=== PATIENT | female | born 1950 | race Caucasian/White ===

== ENCOUNTER → 2016-12-19 | Outpatient (CLI) | payer OTHER | LOC: BMCIMAGING 12:29 | PROVIDERS: ATTEND Nurse Practitioner Family | DX: J40 Bronchitis, not specified as acute or chronic (principal) ==

== ENCOUNTER → 2017-02-28 | Outpatient (CLI) | payer OTHER ==
[~2017-02-28] MED LIST: GADOBUTROL 10 ML VIAL IVP ONE
== END ==
LOC: FIMAGING 13:23
PROVIDERS: ATTEND Internal Medicine
DX: R10.9 Unspecified abdominal pain (principal); R50.9 Fever, unspecified
CPT/HCPCS: A9585

== ENCOUNTER → 2017-02-28 | Outpatient (CLI) | payer OTHER | LOC: BMCIMAGING 07:49 | PROVIDERS: ATTEND Internal Medicine | DX: J40 Bronchitis, not specified as acute or chronic (principal) ==

== ENCOUNTER 2017-03-01 10:15 | Day surgery (SDC) | payer OTHER ==
[2017-03-01 11:26] LABS: HEMATOCRIT 31.7 % (38.0-47.0)
[2017-03-01 11:37] LABS: INR 1.17 (0.83-1.16); PROTIME(PATIENT) 14.9 SEC (12.0-15.0)
[2017-03-01 11:38] LABS: APTT 31.2 SEC (23.0-38.0)
[2017-03-01] MEDS ORDERED: MIDAZOLAM 2 MG/2 ML VIAL ONE (11:48)
[2017-03-01] MEDS ORDERED: fentaNYL 100 MCG/2 ML INJ ONE (11:49)
[2017-03-01 13:40] VITALS: TEMP 98.1
[2017-03-01 14:45] VITALS: O2SAT 93
[2017-03-01 14:46] VITALS: BP 109/69; PULSE 81; RESP 16
== END 2017-03-01 14:46 | disposition home or self-care (01) ==
LOC: FIMAGING 10:15
PROVIDERS: ATTEND Internal Medicine
PROC: 0W9J3ZX Drainage of Pelvic Cavity, Percutaneous Approach, Diagnostic (ICD-10-PCS; principal; 2017-03-01 13:20)
DX: R19.09 Other intra-abdominal and pelvic swelling, mass and lump (principal); R10.2 Pelvic and perineal pain; D72.829 Elevated white blood cell count, unspecified
CPT/HCPCS: J2250; J3010

== ENCOUNTER 2017-03-07 17:11 | Emergency (ER) | payer OTHER ==
--- NOTE | 2017-03-07 17:50 | EDPHY ---
H & P Smoking Status: Never smoked <Bhargav Birch S - Last Filed: 03/07/17 21:13> Smoking Status: Never smoked <Charlie Massey - Last Filed: 03/08/17 16:50> Time Seen by Provider: 03/07/17 17:48 HPI/ROS: Chief complaint. Left calf pain and swelling HPI. This patient was seen by Dr. Massey and not by me. ROS Constitutional. [no fever/chills, no weakness] Eyes. [no problems with vision] ENT. [no sore throat, no nasal drainage] Cardiovascular. [no chest pain] Respiratory. [no shortness of breath, no cough] Abdominal. [no abdominal pain, no nausea/vomiting, no diarrhea] . [no problems urinating] MS. [no calf pain/swelling, no neck/back pain, no joint pain] Skin. [no rash] Lymph. [no swollen glands] Neuro. [no headache, no dizziness, no difficulty walking or with speech] ( Bhargav Birch Jacquie) CHIEF COMPLAINT: Left leg swelling HISTORY OF PRESENT ILLNESS: The patient is a 66-year-old lady with a history of endometrial cancer stage II resected 1 year ago and finished radiation therapy in October of this year followed by Dr. Saldivar as well as Laly Au and surgeon Dr. Dickerson. Patient also was found to have a lymphocele in her left pelvis 1 month ago and had it drained with IR last month. He was shown to have staph infection and she started moxifloxacin today. She noticed over last 2 days increased swelling of her left leg. No significant pain. No erythema. No fever. She is concerned about a DVT. No chest pain, no shortness of breath. REVIEW OF SYSTEMS: Constitutional: denies: chills, fever, recent illness, recent injury EENTM: denies: blurred vision, double vision, nose congestion Respiratory: denies: cough, shortness of breath Cardiac: denies: chest pain, irregular heart rate, lightheadedness, palpitations Gastrointestinal/Abdominal: denies: abdominal pain, diarrhea, nausea, vomiting, blood streaked stools Genitourinary: denies: dysuria, frequency, hematuria, pain Musculoskeletal: See HPI Skin: denies: lesions, rash, jaundice, bruising Neurological: denies: headache, numbness, paresthesia, tingling, dizziness, weakness Hematologic/Lymphatic: denies: blood clots, easy bleeding, easy bruising Immunologic/allergic: denies: HIV/AIDS, transplant EXAM: GENERAL: Well-appearing, well-nourished and in no acute distress. HEAD: Atraumatic, normocephalic. EYES: Pupils equal round and reactive to light, extraocular movements intact, sclera anicteric, conjunctiva are normal. ENT: TMs normal, nares patent, oropharynx clear without exudates. Moist mucous membranes. NECK: Normal range of motion, supple without lymphadenopathy or JVD. LUNGS: Breath sounds clear to auscultation bilaterally and equal. No wheezes rales or rhonchi. HEART: Regular rate and rhythm without murmurs, rubs or gallops. ABDOMEN: Soft, nontender, normoactive bowel sounds. No guarding, no rebound. No masses appreciated. BACK: No CVA tenderness, no spinal tenderness, step-offs or deformities EXTREMITIES: Left lower extremity 1+ edema, no erythema, no tenderness NEUROLOGICAL: Cranial nerves II through XII grossly intact. Normal speech, normal gait. 5/5 strength, normal movement in all extremities, normal sensation PSYCH: Normal mood, normal affect. SKIN: Warm, dry, normal turgor, no visible rashes or lesions. (Charlie Massey) Constitutional: Initial Vital Signs Temperature (C) 37.4 C 03/07/17 17:13 Heart Rate 115 H 03/07/17 17:13 Respiratory Rate 16 03/07/17 17:13 Blood Pressure 125/94 H 03/07/17 17:13 O2 Sat (%) 92 03/07/17 17:13 O2 Delivery Mode Room Air Allergies/Adverse Reactions: iodine [Iodine] Allergy (Intermediate, Verified 08/18/09 06:23) Penicillins Allergy (Verified 08/18/09 03:02) Sulfa (Sulfonamide Antibiotics) Allergy (Verified 08/18/09 03:02) Home Medications: Medication Instructions Recorded Aspirin [Aspirin 81mg (*)] 81 mg PO DAILY 05/14/16 Herbals/Supplements -Info Only 1 ea PO DAILY 05/14/16 Levothyroxine [Synthroid 137 mcg 137 mcg PO DAILY06 05/14/16 (*)] Losartan Potassium [Cozaar] 100 mg PO DAILY 05/14/16 Omeprazole [Prilosec 20 mg] 20 mg PO DAILY PRN 05/14/16 Timolol 0.5% Gel [Timoptic-Xe Gel 1 drops EACHEYE HS 05/14/16 0.5% (*)] Medical Decision Making <Bhargav Birch S - Last Filed: 03/07/17 21:13> - Diagnostics Imaging: Discussed imaging studies w/ call center coordinator Radiologist <Charlie Massey - Last Filed: 03/08/17 16:50> ED Course/Re-evaluation: She does have a small DVT on ultrasound but concerning for slow venous flow. I will image her abdomen to evaluate for potential venous obstruction considering her cyst drainage 1 month ago by IR. There was found to have Staph lugdunesis and she is currently on moxifloxacin for this. The patient states that she is allergic to IV contrast, that it causes hives . She has done well in the past when premedicated. 9:30 p.m. I discussed the CT results with the patient.. Dr. Campbell does not feel that there is a DVT is on CT scan our reviewing ultrasound simply very slow flow. I spoke with Dr. Horner who is covering for Dr. Saldivar. We discussed possibly starting her on a low dose of Xarelto because of her low flow state. Eventually we decided not to because she will hopefully have an interventional procedure soon to dress the lymphocele. I will refer her back to her GERIATRIC CASE MANAGER/ONC surgeon Dr. Dickerson who she saw today. 9:50 p.m. I discussed the case with Dr. Dickerson who said he will follow up with the patient tomorrow and schedule the intervention. (Charlie Massey) Differential Diagnosis: Partial list of the Differential diagnosis considered include but were not limited to; DVT, venous congestion, cyst and although unlikely based on the history and physical exam, I also considered abscess, cellulitis, fasciitis. I discussed these differential diagnoses and the plan with the patient as well as the usual and expected course. The patient understands that the diagnosis is provisional and that in medicine we are not always correct and that further workup is often warranted. Usual and customary warnings were given. All of the patient's questions were answered. The patient was instructed to return to the emergency department should the symptoms at all worsen or return, otherwise to followup with the physician as we discussed. (Charlie Massey) - Data Points Laboratory Results: Laboratory Results 03/07/17 19:15 03/07/17 19:15 Medications Given: Discontinued Medications Diphenhydramine HCl (Benadryl Injection) 50 mg IVP EDNOW ONE Stop: 03/07/17 19:06 Last Admin: 03/07/17 19:33 Dose: 50 mg Methylprednisolone Sodium Succinate (Solu-Medrol) 125 mg IVP EDNOW ONE Stop: 03/07/17 19:06 Last Admin: 03/07/17 19:33 Dose: 125 mg Ranitidine HCl (Zantac) 50 mg IVP EDNOW ONE Stop: 03/07/17 19:06 Last Admin: 03/07/17 19:34 Dose: 50 mg Departure <Bhargav Birch - Last Filed: 03/07/17 21:13> <Charlie Massey - Last Filed: 03/08/17 16:50> - Departure Disposition: Home, Routine, Self-Care Clinical Impression: Lymphocele Edema Qualifiers: Edema type: unspecified Qualified Code(s): R60.9 - Edema, unspecified Condition: Fair Instructions: Edema (ED) Additional Instructions: Dr. Horner and Dr. Campbell do not recommend blood thinners at this time but that you follow up with Dr. Dickerson to schedule injection of your lymphocele with a sclerosing agent to try and reduce compression of your external iliac vein. Referrals: Laly Au MD [Primary Care Provider] - As per Instructions Nasim Dickerson MD [Medical Doctor] - 1-2 days without fail
[2017-03-07] MEDS ORDERED: RANITIDINE 50 MG/2 ML VIAL IVP ONE (19:05)
[2017-03-07] MEDS ORDERED: methylPREDNISolone SOD SUCC 125 MG/2 ML VIAL IVP ONE (19:05)
[2017-03-07 19:21] LABS: % IMMATURE GRANULYOCYTES 0.6 % (0.0-1.1); ABSOLUTE IMMATURE GRANULOCYTES 0.04 10^3/uL (0.00-0.10); ADD DIFF? NO; ADD MORPH? NO; ADD SCAN? NO; ATYPICAL LYMPHOCYTE FLAG 10 (0-99); FRAGMENT RBC FLAG 0 (0-99); HEMATOCRIT 33.4 % (38.0-47.0); HEMOGLOBIN 11.1 g/dL (12.6-16.3); LEFT SHIFT FLG 0 (0-99); LIPEMIA HEMOLYSIS FLAG 80 (0-99); MEAN CELL HEMOGLOBIN 30.6 pg (27.9-34.1); MEAN CELL HEMOGLOBIN CONCENTR. 33.2 g/dL (32.4-36.7); MEAN PLATELET VOLUME 8.4 fL (8.7-11.7); PLATELET CLUMPS FLAG 0 (0-99); PLATELET COUNT 495 10^3/uL (150-400); RED BLOOD CELL COUNT 3.63 10^6/uL (4.18-5.33); RED CELL DISTRIBUTION WIDTH 11.7 % (11.5-15.2)
[2017-03-07 19:29] LABS: APTT 34.9 SEC (23.0-38.0); INR 1.18 (0.83-1.16)
[2017-03-07 19:34] LABS: ANION GAP 11 mEq/L (8-16); CALCIUM 9.4 mg/dL (8.5-10.4); CARBON DIOXIDE 25 mEq/l (22-31); CHLORIDE 106 mEq/L (97-110); CREATININE 0.7 mg/dL (0.6-1.0); GLOMERULAR FILTRATION RATE > 60; GLUCOSE 103 mg/dL (70-100); SODIUM 142 mEq/L (134-144)
[2017-03-07] MEDS ORDERED: IOPAMIDOL (ISOVUE-300) 100 ML BTL ONE (19:55)
[2017-03-07 22:13] VITALS: BP 126/62; PULSE 92; RESP 18; TEMP 98.1; O2SAT 95
== END 2017-03-07 22:13 | disposition home or self-care (01) ==
DX: I89.8 Other specified noninfective disorders of lymphatic vessels and lymph nodes (principal); Z79.82 Long term (current) use of aspirin
CPT/HCPCS: 96374; J1200; J2780; Q9967

== ENCOUNTER 2017-03-11 09:06 | Day surgery (SDC) | payer OTHER ==
[2017-03-11] MEDS ORDERED: POVIDONE-IODINE 30 ML STERILE SOLUTION MISC ONE (10:15)
[2017-03-11] MEDS ORDERED: NS 1,000 ML IV SCH (10:15)
[2017-03-11] MEDS ORDERED: ETHYL ALCOHOL 98% 5 ML AMP MISC ONE (10:15)
[2017-03-11] MEDS ORDERED: CLINDAMYCIN 900 MG/DEXTROSE 50 ML IV ONE (10:30)
[2017-03-11] MEDS ORDERED: MIDAZOLAM 2 MG/2 ML VIAL ONE (10:50)
[2017-03-11] MEDS ORDERED: fentaNYL 100 MCG/2 ML INJ ONE (10:50)
[2017-03-11] MEDS ORDERED: DOXYCYCLINE MISC ONE (11:30)
[2017-03-11] MEDS ORDERED: NS MISC ONE (11:30)
[2017-03-11] MEDS ORDERED: ONDANSETRON 4 MG/2 ML VIAL IVP PRN (12:55)
[2017-03-11] MEDS ORDERED: ACETAMINOPHEN 325 MG TAB PO PRN (12:56)
[2017-03-11] MEDS ORDERED: traMADol 50 MG TAB PO ONE (14:15)
[2017-03-11] MEDS ORDERED: traMADol 50 MG TAB ONE (14:17)
== END 2017-03-11 15:20 | disposition home health service (06) ==
LOC: FIMAGING 09:06
PROVIDERS: ATTEND Obstetrics & Gynecology Gynecologic Oncology
PROC: 0W9J30Z Drainage of Pelvic Cavity with Drainage Device, Percutaneous Approach (ICD-10-PCS; principal; 2017-03-11 12:20)
DX: I89.8 Other specified noninfective disorders of lymphatic vessels and lymph nodes (principal); Z88.3 Allergy status to other anti-infective agents; Z88.0 Allergy status to penicillin; Z88.2 Allergy status to sulfonamides
CPT/HCPCS: 75989; 99152; C1729; C1769; J2250; J3010

== ENCOUNTER 2017-03-25 07:26 | Day surgery (SDC) | payer OTHER ==
[2017-03-25 08:03] LABS: HEMATOCRIT 35.5 % (38.0-47.0)
[2017-03-25 08:12] LABS: INR 1.08 (0.83-1.16); PROTIME(PATIENT) 13.9 SEC (12.0-15.0)
[2017-03-25 08:13] LABS: APTT 32.4 SEC (23.0-38.0)
[2017-03-25] MEDS ORDERED: fentaNYL 100 MCG/2 ML INJ ONE (08:30)
[2017-03-25] MEDS ORDERED: MIDAZOLAM 2 MG/2 ML VIAL ONE (08:31)
[2017-03-25] MEDS ORDERED: NS IRR ONE (09:00)
[2017-03-25] MEDS ORDERED: ETHYL ALCOHOL NB ONE ×2 (09:00→09:45)
[2017-03-25] MEDS ORDERED: NS NB ONE ×2 (09:00→09:45)
[2017-03-25] MEDS ORDERED: DOXYCYCLINE IRR ONE (09:00)
[2017-03-25] MEDS ORDERED: IOPAMIDOL (ISOVUE-300) 100 ML BTL ONE (10:04)
== END 2017-03-25 12:32 | disposition home health service (06) ==
LOC: FIMAGING 07:26
PROVIDERS: ATTEND Radiology Diagnostic Radiology
PROC: 0W9J30Z Drainage of Pelvic Cavity with Drainage Device, Percutaneous Approach (ICD-10-PCS; principal; 2017-03-25 10:10)
DX: I89.8 Other specified noninfective disorders of lymphatic vessels and lymph nodes (principal); Z88.2 Allergy status to sulfonamides; Z88.0 Allergy status to penicillin; Z88.1 Allergy status to other antibiotic agents
CPT/HCPCS: J2250; J3010; Q9967

== ENCOUNTER → 2017-03-28 | Day surgery (SDC) | payer OTHER ==
[~2017-03-28] MED LIST changes: +ACETAMINOPHEN 325 MG TAB ONE; +ACETAMINOPHEN 325 MG TAB PO PRN; +DOXYCYCLINE IRR ONE; +ETHYL ALCOHOL 98% 5 ML AMP MISC ONE; -GADOBUTROL 10 ML VIAL IVP ONE; +MIDAZOLAM 2 MG/2 ML VIAL ONE; +NS 1,000 ML IV SCH; +NS IRR ONE; +ONDANSETRON 4 MG/2 ML VIAL ONE; +fentaNYL 100 MCG/2 ML INJ ONE
[2017-03-28 16:25] VITALS: BP 105/70; O2SAT 98
== END | disposition home or self-care (01) ==
LOC: FIMAGING 11:50
PROVIDERS: ATTEND Radiology Diagnostic Radiology
PROC: 3E0 Administration, Physiological Systems and Anatomical Regions, Introduction (ICD-10-PCS; principal; 2017-03-28 14:40)
PROC: 0WP Anatomical Regions, General, Removal (ICD-10-PCS; principal; 2017-03-28 14:40)
DX: I89.8 Other specified noninfective disorders of lymphatic vessels and lymph nodes (principal)
CPT/HCPCS: J2250; J2405; J3010

== ENCOUNTER → 2017-09-20 | Outpatient (CLI) | payer OTHER | LOC: FIMAGING 09:53 | PROVIDERS: ATTEND Internal Medicine | DX: Z13.6 Encounter for screening for cardiovascular disorders (principal); E78.5 Hyperlipidemia, unspecified; I10 Essential (primary) hypertension; Z85.42 Personal history of malignant neoplasm of other parts of uterus ==

== ENCOUNTER 2018-01-11 21:28 | Observation (INO) | payer OTHER ==
--- NOTE | 2018-01-11 21:40 | CPEKG ---
Heart Rate: 90 RR Interval: 667 P-R Interval: 136 QRSD Interval: 90 QT Interval: 384 QTC Interval: 470 P [place]: 52 QRS [place]: 19 T Wave [place]: 30 EKG Severity - BORDERLINE ECG - EKG Impression: SINUS RHYTHM EKG Impression: BORDERLINE T ABNORMALITIES, ANTERIOR LEADS Electronically Signed By: Angel Barajas 12-Jan-2018 06:56:56
--- NOTE | 2018-01-11 21:42 | EDPHY ---
H & P Stated Complaint: Chest pain, took aspirin/gi cocktail, hx pe Time Seen by Provider: 01/11/18 21:35 HPI/ROS: HPI CHIEF COMPLAINT: Sudden-onset chest pain. 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 She states this started at rest while sitting and watching TV. Sudden-onset 8:00 p.m.. She just retired last month. She has a history of endometrial cancer, DVT, she was on Xarelto but not currently on any anticoagulation, history of obesity, radiation colitis. She decided to take a GI cocktail and 4 baby aspirin prior to arrival. She vomited the GI cocktail. The pain was sudden onset rather severe substernal sharp stabbing did not radiate anywhere. She had nausea associated with it. She states the pain started suddenly at 8:00 p.m. Her 2 hr ago. Denies any focal weakness, denies any numbness or tingling. Denies any pleuritic pain. Denies recent illness. Past Medical History: Endometrial cancer status post radiation, radical hysterectomy, DVT, history of Xarelto use, obesity Past Surgical History: Radical hysterectomy, appendectomy, cholecystectomy Social History: Denies daily use of drugs alcohol tobacco. Just retired. Retired RN. Family History: Noncontributory ROS REVIEW OF SYSTEMS: A comprehensive 10 point review of systems is otherwise negative aside from elements mentioned in the history of present illness. Exam Constitutional appears well nontoxic no acute distress, triage nursing summary reviewed, vital signs reviewed, awake/alert. Eyes normal conjunctivae and sclera, EOMI, PERRLA. HENT normal inspection, atraumatic, moist mucus membranes, no epistaxis, neck supple/ no meningismus, no raccoon eyes. Respiratory clear to auscultation bilaterally, normal breath sounds, no respiratory distress, no wheezing. Cardiovascular rate normal, regular rhythm, no murmur, no edema, distal pulses normal. Gastrointestinal soft, non-tender, no rebound, no guarding, normal bowel sounds, no distension, no pulsatile mass. Genitourinary no CVA tenderness. Musculoskeletal no midline vertebral tenderness, full range of motion, no calf swelling, no tenderness of extremities, no meningismus, good pulses, neurovascularly intact. Skin pink, warm, & dry, no rash, skin atraumatic. Neurologic awake, alert and oriented x 3, AAOx3, moves all 4 extremities equally, motor intact, sensory intact, CN II-XII intact, normal cerebellar, normal vision, normal speech. Psychiatric normal mood/affect. Heme/Lymph/Immune no lymphadenopathy. Differential diagnosis includes but is not limited to: Rule out pulmonary embolism, aortic dissection ACS, atypical chest pain, pneumothorax, pneumonia, pulmonary embolism, aortic dissection, congestive heart failure, tumor, musculoskeletal pain, esophageal pain, GERD, peptic ulcer disease, pancreatitis Medical Decision Making: Plan for this patient IV establishment with blood draw , obtain EKG, full cafeteria monitor rule out acute coronary syndrome, short receive full-dose aspirin. Will give another GI cocktail to see if this improves her symptoms. Full cafeteria monitor. Check D-dimer. Re-evaluation: EKG interpretation by me on record in [employer] system. Impression time of EKG 2138, sinus rhythm rate of 90 T-wave abnormality V1 V2, no ST elevation. T- wave abnormalities are seen on her previous EKG dated 05/14/2016. CT scan angiogram of the chest shows no evidence of PE or aortic dissection. Called to me by Dr. Major. Source: Patient - Personal History Current Tetanus Diphtheria and Acellular Pertussis (TDAP): Unsure - Medical/Surgical History Hx Asthma: No Hx Chronic Respiratory Disease: No Hx Diabetes: No Hx Cardiac Disease: No Hx Renal Disease: No Hx Cirrhosis: No Hx Alcoholism: No Hx HIV/AIDS: No Hx Splenectomy or Spleen Trauma: No Other PMH: S/P/Appy; S/P KUN;S/P LT SALPINOOPHRECTOMY;HTN;C-Diff - Social History Smoking Status: Never smoked Constitutional: Initial Vital Signs Temperature (C) 36.7 C 01/11/18 21:31 Heart Rate 80 01/11/18 21:31 Respiratory Rate 18 01/11/18 21:31 O2 Sat (%) 94 01/11/18 21:31 O2 Delivery Mode Room Air Allergies/Adverse Reactions: Penicillins Allergy (Severe, Verified 01/12/18 08:58) Anaphylaxis Sulfa (Sulfonamide Antibiotics) Allergy (Severe, Verified 01/12/18 08:58) Rash iodine [Iodine] Allergy (Intermediate, Verified 01/12/18 08:58) Rash Home Medications: Medication Instructions Recorded Aspirin [Aspirin 81mg (*)] 162 mg PO HS 05/14/16 Herbals/Supplements -Info Only 1 ea PO DAILY 05/14/16 Levothyroxine [Synthroid 137 mcg 137 mcg PO DAILY06 05/14/16 (*)] Losartan Potassium [Cozaar] 100 mg PO DAILY 05/14/16 Timolol 0.5% Gel [Timoptic-Xe Gel 1 drops EACHEYE HS 05/14/16 0.5% (*)] Calcium Carbonate [Oyster Shell 500 mg PO DAILY 01/12/18 Calcium 500 mg (*)] Medical Decision Making - Data Points Laboratory Results: Laboratory Results 01/11/18 21:45 01/11/18 21:45 Medications Given: Discontinued Medications Al Hydroxide/Mg Hydroxide (Maalox Susp) 30 ml PO ONCE ONE Stop: 01/11/18 21:53 Last Admin: 01/11/18 22:01 Dose: 30 ml Diphenhydramine HCl (Benadryl Injection) 25 mg IVP EDNOW ONE Stop: 01/11/18 23:15 Last Admin: 01/11/18 23:16 Dose: 25 mg Enoxaparin Sodium (Lovenox) 40 mg SC DAILY DEEPAK Stop: 07/11/18 08:59 Last Admin: 01/12/18 08:41 Dose: 40 mg Hyoscyamine Sulfate (Levsin, Hyomax-Sl) 0.25 mg PO ONCE ONE Stop: 01/11/18 21:53 Last Admin: 01/11/18 22:01 Dose: 0.25 mg Sodium Chloride (Ns) 1,000 mls @ 0 mls/hr IV EDNOW ONE; Wide Open PRN Reason: Protocol Stop: 01/11/18 21:53 Last Admin: 01/11/18 22:00 Dose: 1,000 mls Levothyroxine Sodium (Synthroid) 137 mcg PO DAILY06 [facility] Stop: 07/11/18 09:59 Last Admin: 01/12/18 11:41 Dose: 137 mcg Lidocaine (Lidocaine 2% Viscous) 15 ml PO ONCE ONE Stop: 01/11/18 21:53 Last Admin: 01/11/18 22:01 Dose: 15 ml Methylprednisolone Sodium Succinate (Solu-Medrol) 125 mg IVP EDNOW ONE Stop: 01/11/18 23:15 Last Admin: 01/11/18 23:16 Dose: 125 mg Ondansetron HCl (Zofran) 4 mg IVP EDNOW ONE Stop: 01/11/18 23:15 Last Admin: 01/11/18 23:16 Dose: 4 mg Departure - Departure Disposition: [facility] Acute Condition: Good
[2018-01-11] MEDS ORDERED: MAG HYDROX/AL HYDROX/SIMETH 30 ML UDCUP PO ONE (21:52)
[2018-01-11] MEDS ORDERED: NS 1,000 ML IV ONE (21:52)
[2018-01-11] MEDS ORDERED: LIDOCAINE 2% VISCOUS 15 ML UDCUP PO ONE (21:52)
[2018-01-11] MEDS ORDERED: HYOSCYAMINE SULFATE 0.125 MG TAB PO ONE (21:52)
[2018-01-11 22:12] LABS: PLATELET COUNT 261 10^3/uL (150-400)
[2018-01-11 22:13] LABS: CREATINE KINASE 83 IU/L (0-156)
[2018-01-11 22:21] LABS: INR 0.88 (0.83-1.16); PROTIME(PATIENT) 12.2 SEC (12.0-15.0)
[2018-01-11] MEDS ORDERED: IOPAMIDOL (ISOVUE 370) 100 ML BTL IV ONE (23:03)
[2018-01-11] MEDS ORDERED: ONDANSETRON 4 MG/2 ML VIAL ONE (23:11)
[2018-01-11] MEDS ORDERED: methylPREDNISolone SOD SUCC 125 MG/2 ML VIAL ONE (23:11)
[2018-01-11] MEDS ORDERED: ONDANSETRON 4 MG/2 ML VIAL IVP ONE (23:14)
[2018-01-11] MEDS ORDERED: methylPREDNISolone SOD SUCC 125 MG/2 ML VIAL IVP ONE (23:14)
[2018-01-12] MEDS ORDERED: ACETAMINOPHEN 325 MG TAB PO PRN (00:58)
[2018-01-12] MEDS ORDERED: ONDANSETRON 4 MG/2 ML VIAL IVP PRN (00:58)
[2018-01-12] MEDS ORDERED: ONDANSETRON DISINTEGRATING 4 MG TAB PO PRN (00:58)
--- NOTE | 2018-01-12 01:29 | PDGENHP ---
History and Physical - Chief Complaint Chest pain - History of Present Illness 67 yo F w/ hx of DVT and endometrial CA p/w chest pain. Patient was sitting at home when she noticed 10/10 central chest pain with onset around 8 PM. She denies associated symptoms or radiation. She tried a GI cocktail but vomited it back up. At that point she came to the ED. At this point she is chest pain free. Work-up in the ED has been thus far reassuring with non-ischemic ECG and negative troponin. Of note, patient states that she has recently resumed exercising after beginning recovery from cancer treatment. She states she develops central chest pain after about 10 minutes of walking. This has been happening for a month. Her last stress test was 2 years ago and it was unremarkable. She has no CAD hx but mom had an DE at 55 and she is an ex-smoker. History Information - Allergies/Home Medication List Allergies/Adverse Reactions: iodine [Iodine] Allergy (Intermediate, Verified 01/11/18 21:29) Penicillins Allergy (Verified 01/11/18 21:29) Sulfa (Sulfonamide Antibiotics) Allergy (Verified 01/11/18 21:29) Home Medications: Aspirin [Aspirin 81mg (*)] 81 mg PO DAILY 05/14/16 [Last Taken 05/13/16] Herbals/Supplements -Info Only 1 ea PO DAILY 05/14/16 [Last Taken Unknown] Levothyroxine [Synthroid 137 mcg (*)] 137 mcg PO DAILY06 05/14/16 [Last Taken ] Losartan Potassium [Cozaar] 100 mg PO DAILY 05/14/16 [Last Taken 05/13/16] Omeprazole [Prilosec 20 mg] 20 mg PO DAILY PRN 05/14/16 [Last Taken Unknown] Timolol 0.5% Gel [Timoptic-Xe Gel 0.5% (*)] 1 drops EACHEYE HS 05/14/16 [Last Taken 05/12/16] I have personally reviewed and updated: family history, medical history - Past Medical History cancer (Endometrial), DVT (Provoked, now off of AC), hypertension - Surgical History Reports: hysterectomy - Family History Positive for: CAD, mother with history of CAD younger than 65 - Social History Smoking Status: Never smoked Review of Systems Review of Systems: ROS: 10pt was reviewed & negative except for what was stated in HPI & below Physical Exam Physical Exam: Temp Pulse Resp BP Pulse Ox 36.7 C 72 16 131/77 H 96 01/11/18 21:38 01/11/18 23:19 01/11/18 23:19 01/11/18 23:19 01/11/18 23:19 Constitutional: no apparent distress, not in pain Eyes: PERRL, EOMI Ears, Nose, Mouth, Throat: moist mucous membranes, no oral mucosal ulcers Cardiovascular: regular rate and rhythym, no murmur, rub, or gallop Respiratory: no respiratory distress, no rales or rhonchi Gastrointestinal: normoactive bowel sounds, soft, non-tender abdomen Skin: warm, normal color Musculoskeletal: full muscle strength, no muscle tenderness Neurologic: AAOx3, CN II-XII Intact Psychiatric: interacting appropriately, not anxious Lab Data & Imaging Review 01/11/18 21:45 01/11/18 21:45 WBC 5.06 10^3/uL (3.80-9.50) 01/11/18 21:45 RBC 4.22 10^6/uL (4.18-5.33) 01/11/18 21:45 Hgb 13.1 g/dL (12.6-16.3) 01/11/18 21:45 Hct 37.5 % (38.0-47.0) L 01/11/18 21:45 MCV 88.9 fL (81.5-99.8) 01/11/18 21:45 MCH 31.0 pg (27.9-34.1) 01/11/18 21:45 MCHC 34.9 g/dL (32.4-36.7) 01/11/18 21:45 RDW 12.3 % (11.5-15.2) 01/11/18 21:45 Plt Count 261 10^3/uL (150-400) 01/11/18 21:45 MPV 9.1 fL (8.7-11.7) 01/11/18 21:45 Neut % (Auto) 60.7 % (39.3-74.2) 01/11/18 21:45 Lymph % (Auto) 19.4 % (15.0-45.0) 01/11/18 21:45 [place] % (Auto) 12.8 % (4.5-13.0) 01/11/18 21:45 Eos % (Auto) 6.1 % (0.6-7.6) 01/11/18 21:45 Baso % (Auto) 0.8 % (0.3-1.7) 01/11/18 21:45 Nucleat RBC Rel Count 0.0 % (0.0-0.2) 01/11/18 21:45 Absolute Neuts (auto) 3.07 10^3/uL (1.70-6.50) 01/11/18 21:45 Absolute Lymphs (auto) 0.98 10^3/uL (1.00-3.00) L 01/11/18 21:45 Absolute Monos (auto) 0.65 10^3/uL (0.30-0.80) 01/11/18 21:45 Absolute Eos (auto) 0.31 10^3/uL (0.03-0.40) 01/11/18 21:45 Absolute Basos (auto) 0.04 10^3/uL (0.02-0.10) 01/11/18 21:45 Absolute Nucleated RBC 0.00 10^3/uL (0-0.01) 01/11/18 21:45 Immature Gran % 0.2 % (0.0-1.1) 01/11/18 21:45 Immature Gran # 0.01 10^3/uL (0.00-0.10) 01/11/18 21:45 PT 12.2 SEC (12.0-15.0) 01/11/18 21:45 INR 0.88 (0.83-1.16) 01/11/18 21:45 APTT 29.2 SEC (23.0-38.0) 01/11/18 21:45 D-Dimer 0.31 ug/mLFEU (0.00-0.50) 01/11/18 21:45 Sodium 142 mEq/L (135-145) 01/11/18 21:45 Potassium 4.2 mEq/L (3.5-5.2) 01/11/18 21:45 Chloride 108 mEq/L (97-110) 01/11/18 21:45 Carbon Dioxide 23 mEq/l (22-31) 01/11/18 21:45 Anion Gap 11 mEq/L (8-16) 01/11/18 21:45 BUN 18 mg/dL (7-23) 01/11/18 21:45 Creatinine 0.7 mg/dL (0.6-1.0) 01/11/18 21:45 Estimated GFR > 60 01/11/18 21:45 Glucose 113 mg/dL (70-100) H 01/11/18 21:45 Calcium 9.3 mg/dL (8.5-10.4) 01/11/18 21:45 Magnesium 1.8 mg/dL (1.6-2.3) 01/11/18 21:45 Total Bilirubin 0.5 mg/dL (0.1-1.4) 01/11/18 21:45 Conjugated Bilirubin 0.3 mg/dL (0.0-0.5) 01/11/18 21:45 Unconjugated Bilirubin 0.2 mg/dL (0.0-1.1) 01/11/18 21:45 AST 33 IU/L (14-46) 01/11/18 21:45 ALT 29 IU/L (9-52) 01/11/18 21:45 Alkaline Phosphatase 83 IU/L (38-126) 01/11/18 21:45 Creatine Kinase 83 IU/L (0-156) 01/11/18 21:45 CK-MB (CK-2) Fraction 2.34 ng/mL (0.00-3.19) 01/11/18 21:45 Troponin I < 0.012 ng/mL (0.000-0.034) 01/11/18 21:45 NT-Pro-B Natriuret Pep 53 pg/mL (0-125) 01/11/18 21:45 Total Protein 6.8 g/dL (6.3-8.2) 01/11/18 21:45 Albumin 3.9 g/dL (3.5-5.0) 01/11/18 21:45 Lipase 181 IU/L (23-300) 01/11/18 21:45 Imaging Review: Imaging Impressions Chest X-Ray 01/11/18 21:53 Impression: 1. No active cardiopulmonary disease seen. Chest/Thorax CTA 01/11/18 22:54 Impression: 1. No evidence of pulmonary embolus using CT protocol. 2. Normal CT chest. Findings discussed with Angel Barajas MD at 0:21 hour, 01/12/2018. Visualized and Interpreted Chest x-ray results: Yes Chest X-Ray results: no infiltrate Visualized and Interpreted EKG results: Yes EKG Interpretation: Positive for: normal sinsus rhythm, NS ST wave abnormalities Assessment & Plan Assessment: 67 yo F w/ HTN, hx of endometrial CA, and DVT p/w chest pain. Plan: 1. Chest pain - Atypical in that pain began at rest and had little relation to exertion. Patient reports frequent heartburn but this was somewhat different. HEART score of 4 denoting intermediate risk so reasonable to admit for observation. CTPE negative for PE or intrathoracic disease. She does have symptoms that could be c/w chronic angina at baseline. - Admit to PCU for observation - Monitor on telemetry, trend cardiac enzymes - If work-up remains unremarkable, patient would prefer to defer stress test to outpatient setting. I think this would be appropriate if work-up remains negative. 2. Hx Endometrial CA - S/p hysterectomy and radiation. 3. Hx DVT - Provoked; stopped AC after 3 months in June of 2017. CTPE negative for PE. 4. HTN - Continue home meds Diet - NPO pending ACS r/o Code - Full Ppx - LMWH Dispo - Admit under observation status
[2018-01-12 05:19] LABS: PLATELET COUNT 244 10^3/uL (150-400)
[2018-01-12 08:32] VITALS: BP 122/85
[2018-01-12] MEDS ORDERED: ENOXAPARIN 40 MG/0.4 ML SYR SC SCH (09:00)
[2018-01-12] MEDS ORDERED: NON-FORMULARY NEW DRUG (Losartan Potassium [Cozaar] 100 MG) PO SCH (10:00)
[2018-01-12] MEDS ORDERED: LEVOTHYROXINE 137 MCG TAB PO SCH (10:00)
--- NOTE | 2018-01-12 10:27 | ASMTCMCOM ---
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 No current needs identified CM available should needs arise. Plan: Likely dc home independently. Date Signed: 01/12/2018 10:27 AM Electronically Signed By:Rubi Lauren RN
--- NOTE | 2018-01-12 10:49 | HOSPPROG ---
Hospitalist Progress Note Assessment/Plan: 67-year-old with a remote history of DVT and endometrial cancer presents with chest pain. She did try GI cocktail at home and did not tolerated so came to the ER for further evaluation. Currently she is feeling better. Her main complaint is dyspnea on exertion this is been going on for several months. Workup as an outpatient has included a calcium score which was 0 and some blood work which revealed no anemia. She is heavier than she has been in some time and feels that it is her weight causing her dyspnea. Last night's chest pain was the 1st time she had chest pain. # chest pain: Unlikely to be ischemia given her recent negative stress test and normal troponins. Discussed with Dr. Luciano Clark * Plan for outpatient stress test # dyspnea on exertion, long-term without clear etiology. * Check echocardiogram while she is here * Continue working with weight loss * CT angiogram negative for PE # hypertension currently on Cozaar # hypothyroidism on replacement with recent normal TSH # glaucoma Subjective: Reviewed hospital notes for patient. She is feeling better with minimal chest pain Objective: Vital Signs Temp Pulse Resp BP Pulse Ox 36.9 C 93 20 122/85 H 91 L 01/12/18 08:26 01/12/18 08:26 01/12/18 08:26 01/12/18 08:26 01/12/18 08:26 Laboratory Results 01/12/18 04:26 01/12/18 04:26 01/11/18 01/12/18 01/13/18 05:59 05:59 05:59 Intake Total 150 Balance 150 PT 12.2 SEC (12.0-15.0) 01/11/18 21:45 INR 0.88 (0.83-1.16) 01/11/18 21:45 - Physical Exam Constitutional: obese Eyes: PERRL Cardiovascular: regular rate and rhythym Respiratory: no respiratory distress, no rales or rhonchi, clear to auscultation , reduced air movement Gastrointestinal: normoactive bowel sounds Skin: warm, normal color Musculoskeletal: no muscle tenderness Neurologic: AAOx3, No facial droop Psychiatric: interacting appropriately, not anxious ICD10 Worksheet Patient Problems: Problems Problem Status Onset C. difficile diarrhea Acute 01/10/16 Chest pain Acute HTN (hypertension) Acute Lymphocele Acute Edema Acute
--- NOTE | 2018-01-12 12:49 | GDS ---
[f rep st] DISCHARGE SUMMARY DIAGNOSES: 1. Chest pain, atypical. Negative troponins. No EKG changes. 2. Dyspnea on exertion, chronic. 3. Hypertension. 4. Hypothyroidism. 5. Obesity. 6. Glaucoma. PROCEDURES DONE: Echocardiogram. Normal wall motion. Normal EF greater than 65%. HOSPITAL COURSE: The patient is a 67-year-old, who comes in with several months of dyspnea on exerti on as well as 1 episode of chest pain the night of admission. She was admitted overnight on telemetr y. Her troponins were negative. EKG was stable and she was seen by Cardiology, Dr. Luciano Clark, on the day of admission. He felt that she was safe to go home with an outpatient exercise stress test which will be ordered. I did do an echocardiogram prior to discharge due to her dyspnea on exertion, which was unremarkable. I think her dyspnea on exertion is likely secondary to her obesity and she does have a plan to initiate some weight loss. She also has been under a lot of stress recently, [facility] ch has improved since she is recently retired from her job as a nurse at the [employer]. CONDITION ON DISCHARGE: Good. DISCHARGE MEDICATIONS: Please see discharge medication form. FOLLOW UP: Followup will be with her primary care provider after her exercise stress test or if she has recurrent chest pain. /[id number]/MODL
[2018-01-12] MEDS ORDERED: TIMOLOL 0.5% EACHEYE SCH (21:00)
[2018-01-12] MEDS ORDERED: ASPIRIN 81 MG CHEWABLE TAB PO SCH (21:00)
[2018-01-13] MEDS ORDERED: LOSARTAN POTASSIUM 50 MG TAB PO SCH (09:00)
[2018-01-13] MEDS ORDERED: CALCIUM CARBONATE 500 MG TAB PO SCH (09:00)
== END 2018-01-12 14:30 | disposition home or self-care (01) ==
LOC: F2W 01-12 01:47
PROVIDERS: ADMIT Student in an Organized Health Care Education/Training Program; ATTEND Student in an Organized Health Care Education/Training Program
DX: R07.9 Chest pain, unspecified (principal); R06.00 Dyspnea, unspecified; I10 Essential (primary) hypertension; E03.9 Hypothyroidism, unspecified; E66.9 Obesity, unspecified; H40.9 Unspecified glaucoma; Z88.0 Allergy status to penicillin; Z88.2 Allergy status to sulfonamides; Z90.49 Acquired absence of other specified parts of digestive tract; Z90.721 Acquired absence of ovaries, unilateral; Z98.891 History of uterine scar from previous surgery
CPT/HCPCS: 71045; 71275; 93005; 93306; G0378; J1200; J1650; J2405; J2930; Q9967

== ENCOUNTER → 2018-02-21 | Outpatient (CLI) | payer OTHER | LOC: BMCIMAGING 11:19 | PROVIDERS: ATTEND Internal Medicine | DX: Z12.31 Encounter for screening mammogram for malignant neoplasm of breast (principal) ==